=== PATIENT | male | born 1965 | race Caucasian/White ===

== ENCOUNTER 2020-06-11 06:40 | Outpatient (CLI) | payer OTHER ==
[~2020-06-11 06:40] MED LIST: ALPR0.25 PO; IBUP-1221 PO
== END 2020-06-11 23:59 | disposition home or self-care (01) ==
LOC: CVU 06:40
PROVIDERS: ATTEND Nurse Practitioner Family
DX: I73.9 Peripheral vascular disease, unspecified (principal); R53.83 Other fatigue
CPT/HCPCS: 93922